=== PATIENT | male | born 1995 | race Hispanic/Latino ===

== ENCOUNTER 2017-12-24 20:53 | Emergency (ER) | payer SELFPAY ==
[2017-12-24] MEDS ORDERED: IBUPROFEN 400 MG TABLET ONE (22:13)
[2017-12-24] MEDS ORDERED: IBUPROFEN 200 MG TAB ONE (22:14)
== END 2017-12-24 22:19 | disposition home or self-care (01) ==
LOC: EDH 20:53
DX: S46.092A Other injury of muscle(s) and tendon(s) of the rotator cuff of left shoulder, initial encounter (principal); Y04.0XXA Assault by unarmed brawl or fight, initial encounter; Y93.89 Activity, other specified; Y92.89 Other specified places as the place of occurrence of the external cause; Y99.8 Other external cause status
CPT/HCPCS: 73030